=== PATIENT | male | born 1990 | race Hispanic/Latino ===

== ENCOUNTER 2016-08-03 01:48 | Emergency (ER) | payer SELFPAY ==
[2016-08-03 02:00] VITALS: BP 112/71
--- NOTE | 2016-08-03 05:56 | Emergency Department Report ---
Chief Complaint: Eye Problems Stated Complaint: EYE PAIN Time Seen by Provider: 08/03/16 05:21 - HPI History of Present Illness: 18-year-old male presents today with left eye drainage 1 day. Positive for pruritus and erythema. Denies pain. Denies foreign body sensation. Denies sick contacts. Denies fever, chills, nausea, vomiting, cold symptoms, chest pain, shortness of breath, abdominal pain. - ROS Review of Systems: Per HPI - Exam Vital Signs: Vital Signs 08/03/16 01:57 Temperature 97.8 F Pulse Rate 73 Respiratory 18 Rate Blood Pressure 112/71 O2 Sat by Pulse 99 Oximetry Physical Exam: GENERAL: The patient is well-developed and well-nourished. Patient is in NAD. HEAD: Normocephalic. Atraumatic. EYES: Extraocular motions are intact, PERRL. Positive for left conjunctival injection with drainage. EARS: External auditory canals and tympanic membranes clear; hearing grossly intact. NOSE: Normal nasal mucosa with no nasal discharge. THROAT: No erythema, swelling or exudates. NECK: Supple, nontender, without lymphadenopathy. CHEST/LUNGS: Clear to auscultation throughout. HEART/CARDIOVASCULAR: Regular rate and rhythm. No murmurs, rubs or gallops. ABDOMEN: Abdomen is soft, nontender. Bowel sounds normoactive. No guarding or rebound tenderness. MSE screening note: Focused history and physical exam performed. Due to findings the following was ordered: ED Disposition for MSE Disposition: MEDICAL SCREENING EXAM-LEFT Condition: Stable Referrals: PRIMARY CARE, [Primary Care Provider] - 3-5 Days
== END 2016-08-03 05:59 | disposition home or self-care (01) ==
LOC: ED 01:48
DX: H10.9 Unspecified conjunctivitis (principal); Z53.21 Procedure and treatment not carried out due to patient leaving prior to being seen by health care provider